=== PATIENT | male | born 1990 | race Caucasian/White ===

== ENCOUNTER 2018-03-01 15:21 | Emergency (ER) | payer OTHER ==
[~2018-03-01] VITALS: Ht 180.3 cm; Wt 60.8 kg
--- NOTE | 2018-03-01 15:55 | Emergency Room Report ---
History of Present Illness General Chief Complaint: Male Urogenital Problems Source: Patient Present Illness HPI 27-year-old male presents ED for evaluation. Patient complaining of right scrotal pain and swelling for 3 days. Pain is throbbing, 8 out of 10, nonradiating. Denies any discharge. Denies any fevers or chills. States he is having multiple episodes of unprotected sex. No other aggravating relieving factors. Denies any other associated symptoms Allergies: Coded Allergies: SULFA (SULFONAMIDE ANTIBIOTICS) (Verified Allergy, Intermediate, Hives, ) Patient History Past Medical History: none Past Surgical History: none Pertinent Family History: none Social History: Denies: smoking, alcohol use, drug use Immunizations: UTD Reviewed Nursing Documentation: PMH: Agreed; PSxH: Agreed Nursing Documentation-PMH Past Medical History: No History, Except For Review of Systems All Other Systems: negative except mentioned in HPI Physical Exam Vital Signs Date Time Temp Pulse Resp B/P (MAP) Pulse Ox O2 Delivery O2 Flow Rate FiO2 03/01/18 15:27 97.4 114 20 122/72 98 Room Air 97.3 Sp02 EP Interpretation: reviewed, normal General Appearance: alert, GCS 15, non-toxic, mild distress Head: normocephalic Eyes: bilateral eye normal inspection, bilateral eye PERRL ENT: normal ENT inspection Neck: normal inspection Respiratory: normal inspection Cardiovascular #1: normal inspection Gastrointestinal: normal bowel sounds, non tender, soft, non-distended, no guarding, no rebound Rectal: deferred Genitourinary: no CVA tenderness, other - R scrotal pain/swelling Musculoskeletal: normal inspection Neurologic: alert, oriented x3, responsive, motor strength/tone normal, sensory intact, speech normal Psychiatric: normal inspection Skin: normal inspection Lymphatic: normal inspection Medical Decision Making Diagnostic Impression: Primary Impression: Orchitis ER Course Hospital Course 27-year-old male presents to ED with right testicular pain/swelling. Differential diagnoses include: hydrocele, varicocele, epididymitis, testicular torsion Clinical course Patient placed on stretcher. After initial history and physical I ordered UA and scrotal ultrasound. UA-normal Ultrasound shows epididymitis, orchitis. No evidence of torsion. Good flow to both testicles. Discussed findings with patient. Given pain meds, Rocephin, azithromycin here. We'll discharge on doxycycline. We'll provide PMD referrals Diagnosis - orchitis stable and discharged to home with prescription for doxycycline. Followup with PMD. Return to ED if symptoms recur or worsen Labs Test 03/01/18 15:45 Urine Color Yellow Urine Appearance Cloudy Urine pH 6.5 (4.5-8.0) Urine Specific [place] 1.015 (1.005-1.035) Urine Protein 2+ (NEGATIVE) Urine Glucose (UA) Negative (NEGATIVE) Urine Ketones 1+ (NEGATIVE) Urine Blood Negative (NEGATIVE) Urine Nitrite Negative (NEGATIVE) Urine Bilirubin Negative (NEGATIVE) Urine Urobilinogen 1 MG/DL (0.0-1.0) Urine Leukocyte Esterase 1+ (NEGATIVE) Urine RBC 2-4 /HPF (0 - 0) Urine WBC 20-30 /HPF (0 - 0) Urine Squamous Epithelial Cells Occasional /LPF Urine Bacteria Few /HPF (NONE) Urine Mucus Few /LPF (NONE/OCC) CT/MRI/US Diagnostic Results CT/MRI/US Diagnostic Results : Imaging Test Ordered: Scrotal US Impression orchitis, epididymitis Last Vital Signs Date Time Temp Pulse Resp B/P (MAP) Pulse Ox O2 Delivery O2 Flow Rate FiO2 03/01/18 15:27 97.4 114 20 122/72 98 Room Air 97.3 Status: improved Disposition: HOME, SELF-CARE Condition: Stable Scripts Doxycycline Monohydrate* (DOXYCYCLINE MONOHYDRATE*) 100 Mg Capsule 100 MG ORAL Q12H for 10 Days, #20 CAP 0 Refills Prov: Chavo Stone MD 03/01/18 Acetaminophen With Codeine (T#3) (TYLENOL #3 TAB*) Y Tab 1 TAB ORAL Q8H PRN for For Pain, #20 TAB Prov: Chavo Stone MD 03/01/18 Chavo Stone MD Mar 01, 2018 15:55
[2018-03-01 16:01] LABS: APPEARANCE,URINE CLOUDY; BILIRUBIN, URINE NEGATIVE (NEGATIVE); GLUCOSE, URINE (UA) NEGATIVE (NEGATIVE); KETONES,URINE 1+ (NEGATIVE); LEUKOCYTE ESTERASE ,URINE 1+ (NEGATIVE); NITRITE,URINE NEGATIVE (NEGATIVE); PH,URINE 6.5 (4.5-8.0); PROTEIN,URINE 2+ (NEGATIVE); UROBILINOGEN,URINE 1 MG/DL (0.0-1.0)
[2018-03-01 16:02] LABS: COLOR,URINE YELLOW
[2018-03-01] MEDS ORDERED: ACETAMINOPHEN-1 EAC1 ORAL (17:07)
[2018-03-01] MEDS ORDERED: DOXYCYCLINE MO100 MG ORAL (17:07)
[2018-03-01] MEDS ORDERED: Tylenol #3 tab (300mg/30mg) ORAL ONE (17:15)
[2018-03-01] MEDS ORDERED: Azithromycin 250mg tab ORAL ONE (17:15)
[2018-03-01] MEDS ORDERED: Lidocaine 1% MPF 10mg/ml 5ml INJ ONE (17:15)
[2018-03-01 17:25] VITALS: BP 122/72
[2018-03-01 17:26] VITALS: BP 122/72
--- NOTE | 2018-03-02 08:17 | Diagnostic Imaging Report ---
Indications: Right-sided testicular pain and swelling Technique: Grayscale and duplex images of the scrotum Comparison: none Findings:The right testicle measures 2.6cm in length. It demonstrates normal echogenicity. There is a small to moderate hydrocele. Doppler flow is present, and the testicle and epididymal head are equivocally slightly hyperemic. A 4 mm cyst is seen in the epididymal head. There is a small to moderate size hydrocele. The left testicle measures 2.8 cm in length. It demonstrates normal echogenicity and normal Doppler flow. Normal epididymis. Impression: Negative for evidence of testicular torsion Equivocal slight testicular and epididymal hyperemia, could indicate epididymoorchitis. Correlate with clinical findings
== END 2018-03-01 17:26 | disposition home or self-care (01) ==
LOC: EMR 15:45
DX: N45.3 Epididymo-orchitis (principal); N50.82 Scrotal pain; Z88.2 Allergy status to sulfonamides
CPT/HCPCS: 76870; 81003; 87086; 96372; 99284; J0696